=== PATIENT | female | born 1955 | race Caucasian/White ===

== ENCOUNTER 2016-08-14 07:17 | Day surgery (SDC) | payer OTHER ==
--- NOTE | 2016-08-10 13:09 | PCM.ANEPRE ---
Anesthesia Pre-Op Review Reason for Review: DISCUSSED W/ DR. DENIS/ANESTHESIA PACEMAKER Anesthesia Recommendations: Proceed with Procedure Additional Comments 61 yo F scheduled for mastectomy with ax node by Dr. Lovell. Followed by Dr. 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 Pacemaker recs received. Proceed. Yimi Denis Chart Reviewed by: Yong Lee MD August 10, 2016 13:09
[~2016-08-14] VITALS: Ht 179.1 cm; Wt 81.6 kg
[2016-08-14] VITALS (11 sets, daily range): BP systolic 115–155; BP diastolic 67–82; PULSE 65–88; RESP 13–23; O2SAT 96–100
[~2016-08-14 07:17] MED LIST: ALPR1TAB7 PO; ASPI-973 PO; CITA20TA11 PO; CeFAZolin Inj 2 GM in IV Premix 1 EACH IV SCH; Lactated Ringer's 1,000 ML IV ONE; ZOLP5TAB6 PO
[2016-08-14] MEDS ORDERED: Ketamine 10 mg/mL 20 mL Inj IV ONE (07:18)
[2016-08-14] MEDS ORDERED: Dexamethasone 4 mg/mL Inj IV ONE (07:18)
[2016-08-14] MEDS ORDERED: fentaNYL-PF 50 mCg/mL 2 mL Inj IVPUSH ONE (07:18)
[2016-08-14] MEDS ORDERED: Ondansetron 2 mg/mL 2 mL Inj IVPUSH ONE (07:18)
[2016-08-14] MEDS ORDERED: Propofol 10,000 mCg/mL 20 mL Inj IV ONE (07:18)
[2016-08-14] MEDS ORDERED: Lidocaine 1%/Epi 1:100,000 30 mL MDV INFILTRATE ONE (11:39)
[2016-08-14] MEDS ORDERED: Lactated Ringer's 1,000 ML IV SCH (12:09)
[2016-08-14] MEDS ORDERED: MetoCLOpramide 5 mg/mL 2 mL Inj IVPUSH PRN (12:10)
[2016-08-14] MEDS ORDERED: EPHEDrine Sulfate 50 mg/mL Inj IVPUSH PRN (12:10)
[2016-08-14] MEDS ORDERED: HYDROmorphone 1 mg/mL Inj IVPUSH PRN (12:10)
[2016-08-14] MEDS ORDERED: Dexamethasone 4 mg/mL Inj IVPUSH PRN (12:10)
[2016-08-14] MEDS ORDERED: Phenylephrine 10,000 mCg/mL Inj IVPUSH PRN (12:10)
[2016-08-14] MEDS ORDERED: Ondansetron 2 mg/mL 2 mL Inj IVPUSH PRN (12:10)
[2016-08-14] MEDS ORDERED: Bupivacaine-MPF 0.25%/EPI 30 mL Inj INFILTRATE ONE (12:16)
[2016-08-14] MEDS ORDERED: Lactated Ringer's 1,000 ML IV ONE (13:45)
[2016-08-14] MEDS ORDERED: HYDROcodone-APAP 5-325 mg Tablet PO PRN (13:50)
--- NOTE | 2016-08-14 13:51 | PCM.DISURG ---
Surgical Discharge Instruction Date of Service August 14, 2016 Dates of Hospitalization Date of Hospital Admission Providers Admitting Physician: Primary Care Physician: Rd Rose MD Attending Physician: Ford Lovell MD Discharge Diagnosis Discharge Diagnosis Right breast cancer Diet Discharge Diet: No restrictions Activity Discharge Activity-General: Activity as pain allows Dressing and Incisional Care Dressing Care: Allow Steri Stripes to fall off, Remove outer dressing after 24 hrs Hygiene: May shower after (24 hours) Additional Instructions Discharge Instructions Empty GEOVANNA drain record output daily. Call the surgery clinic one drain output is less than 30 mL in 24 hours for 2 consecutive days. Follow Up Plan Follow Up Plan With Dr. Lovell in 10-14 days Call your provider for: Fever (over 101.5), Discharge @ incision, pus discharge Ford Lovell MD August 14, 2016 13:51
--- NOTE | 2016-08-14 13:59 | PCM.SURGOP ---
Surgical Operative Report Date of Service: August 14, 2016 Pre Operative Diagnosis Right breast cancer Post Operative Diagnosis Same Procedure: Right simple mastectomy, right axillary sentinel lymph node biopsy Surgeon and 911 Emergency Dispatcher: Surgeon: Ford Lovell MD Assistants: Wilton Wong PA-C Indication for Procedure 61-year-old woman who was found to have a new focal asymmetry in the right breast lower inner quadrant on screening mammogram and tomosynthesis. Additional views showed a 0.7 cm mass. 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 She was a candidate for breast conserving surgery, but she strongly preferred right mastectomy without reconstruction. After discussion of risks and benefits, she agreed to proceed with right simple mastectomy, right axillary sentinel lymph node biopsy. Findings: There were 2 sentinel nodes. The first sentinel node did not have blue dye uptake, and only had an ex vivo gamma count of 5. The second sentinel node, which was immediately adjacent to it, had an ex vivo gamma count of 44, and had blue dye uptake. The background count in the right axilla was 0. Procedure Details Preoperatively, the patient underwent right breast radiotracer injection for sentinel lymph node identification. She was then brought to the operating room where she underwent smooth induction of general anesthesia with an LMA. Assessment of the right axilla revealed a very weak radiotracer signal, so methylene blue was injected, and the breast was massaged for several minutes. She was placed in the supine position with the right arm out, and was prepped and draped in wide sterile fashion. A procedural pause was performed according to the SCOAP checklist, and all were found to be in agreement. An elliptical transverse incision was made, encompassing the nipple areolar complex. Skin flaps are raised superiorly and inferiorly. Circumferential dissection was carried out with electrocautery, elevating the skin and subcutaneous tissue off the underlying breast capsule. Margins of dissection were the right clavicle, the midline, the right inframammary crease, and the right anterior axillary line. The right breast was elevated off the underlying chest wall, and pectoralis fascia was resected en bloc. The right axillary tail was divided. Prior to division, 2 separate blue lymphatic channels were visualized entering the right axilla. The right breast was oriented with suture. Assessment of the right axillary tail did not reveal any significant radiotracer uptake, and similarly, an initial assessment of the right axilla showed no significant radiotracer uptake. The right breast was sent for permanent pathology. Prior to sending it, because of difficulty identifying a sentinel node initially, portions of the posterior aspect of the axillary tail and breast were sharply dissected with Metzenbaum scissors, looking for blue lymph nodes. Attention was turned back to the axilla. Ultimately, a small focus of radiotracer activity was identified. This was dissected free from the surrounding tissue with the LigaSure device. Ex vivo, it had a fairly low radiotracer signal, but higher than background. The ex vivo count was 5. That lymph node did not have blue dye uptake. It was labeled as right axillary sentinel lymph node #1 and sent for permanent pathology. Immediately adjacent to it, there was a small blue lymph node. It was dissected free from the surrounding tissue with the LigaSure device. Ex vivo, it did have a significant radiotracer count of 44. The background count in the right axilla was 0. That lymph node was sent for permanent pathology, labeled as right axillary sentinel lymph node #2. Hemostasis was adequate. A 19 [place] round GEOVANNA drain was brought out through a separate incision laterally, and secured to the skin with a 2-0 nylon stitch. The skin flap was assessed. There was a small amount of redundant skin at the lateral aspect, which was excised sharply and sent for permanent pathology. The skin incision was then closed with interrupted deep dermal 3-0 Vicryl sutures, and a running 4-0 Vicryl subcuticular stitch. Steri-Strips and sterile dressings were applied. At the end of the case all needle and sponge counts were correct 2. The patient was awakened from anesthesia without difficulty, and taken to the recovery room in satisfactory condition, having tolerated the procedure well. Complications There were no periprocedural complications identified. Surgical Specimen Removed: Yes Specimen sent to Pathology: Yes Surgical Specimen description: Right breast. Right axillary sentinel lymph node #1. Right axillary sentinel lymph node #2. Right lateral skin. Anesthetic Plan: GA Grafts, Implants: None Output, Estimated Blood Loss: 20 Blood Administration during gilbert: No Drains: GEOVANNA Drain #1 Catheters: None copies to: Rd Rose MD; Colten Roe Joshua D MD August 14, 2016 13:59
[2016-08-14] MEDS: fentaNYL-PF 50 mCg/mL 2 mL Inj IVPUSH PRN ×2 (14:30→14:40)
--- NOTE | 2016-08-14 14:31 | PCM.HPANE ---
Patient Data Surgeon Admitting Provider: Attending Provider:Ford Lovell MD Primary Care Physician:Rd Rose MD Other Provider:[facility] Anesthesia Reason for Visit Right Breast Cancer Ht/WT & BMI Height (Feet): 5 Height (Inches): 10.50 Weight (Kilograms): 81.6 Body Mass Index 25.00 Allergies Coded Allergies: No Known Allergies (Unverified , 08/14/16) Past Anesthesia History Anesthesia History: Positive for:: Anesthesia Reactions (DIFFICULT TO SEDATE, PONV), Denies:: Abnormal Airway, Difficult Intubation, Malignant Hyperthermia Diabetes History Hx Diabetes?: No MRSA MRSA: No Medications Blood Thinner: Aspirin Hypertension Medication: No Home Meds Incl Beta Alberto: No Reported Medications Aspirin 81 Mg [id number] Mg PO DAILY Ref 0 07/16/16 Zolpidem 5 Mg Tablet5 Mg PO HS PRN For Insomnia Ref 0 07/16/16 Citalopram 20 Mg [id number] Mg PO DAILY Ref 0 07/16/16 Alprazolam 1 Mg Tablet1 Mg PO TID PRN For Anxiety Ref 0 07/16/16 History History of ENT Problems?: No HEENT History: Denies:: Abnormal Airway Difficult Intubation Denture Type: None Teeth Condition: Within Normal Limits Hx of Heart Problems?: Yes Cardiovascular History: Positive for:: Cardiac Surgery (S/P PACEMAKER) Irregular Heartbeat (TACHY-MAO SYNDROME) [facility] Denies:: Heart Murmur Hypertension Hx of Respiratory Problem?: Yes Respiratory History: Positive for:: Dyspnea (2 BOUTS OF ESTRELLA (RESOLVED)-W/U NEG EXCEPT FOR STABLE PULM. NODULES) Denies:: Use of C-PAP Machine Hx Neurologic Problems?: No Hx of GI Problems?: Yes Hx of Problems?: No Female Hx: Positive for:: Endometriosis Problems with Breasts? (S/P RT BREAST BX RT BREAST CA (+HRT)=CURRENT PROBLEM) Denies:: Currently Skin History: Denies:: History Skin Disorders? Pressure Ulcers Hx Musculoskeletal Problems?: Yes Musculoskeletal History: Positive for:: Musculoskeletal Trauma (S/P KNEE SCOPE HX LT FX WRIST) Hx of Psycho/Social Problems?: Yes Psycho Social History: Positive for:: Anxiety (SLEEP WALKS) Hx Surgeries?: Yes (PACEMAKER,EMMANUEL/BSO,KNEE SCOPE,RT BREAST BX) Hx Any Other Health Problems?: Yes Other History: Positive for:: Cancer (RT BREAST) Hospitalization (CARDIAC) Denies:: Endocrine Disease Thyroid Disease History Blood Transfusions: Denies:: Blood Transfusions Hx Diabetes: No Have You Smoked inLast 12 mo: No Stop/Bang Treated for Sleep Apnea?: No Do You Have a CPAP Machine?: No S-Snoring: Do You Snore Loudly: No T-Tired: feel tired, fatigued: No O-Obsered: Observed not breath: No P-Blood Pressure: treated: No B- Body Mass Index > 35 kg/m2: No A- Age over 50: Yes N- Neck Large Circumference: No G- Gender Male: No GERMAN Total Score: 1 GERMAN Risk Assessment: Low Risk, <3 Yes Risk Assessment Category Category 1A: Patient has history of documented sleep apnea, and HAS NOT received any narcotic, sedative or anesthesia administration during this stay. Category 1B: Patient has history of documented sleep apnea, and HAS received any narcotic , sedative or anesthesia administration during this stay Category 2: Patient has SUSPECTED Obstructive Sleep Apnea, and HAS received any narcotic , sedative or anesthesia administration during this stay. Category 3: Patient has SUSPECTED Obstructive Sleep Apnea and HAS NOT received narcotic, sedative or anesthesia administration during this stay. Category 4: Outpatient in Procedural Areas with known sleep apnea or who screen positive for High Risk via the STOP/BANG questionnaire. Exam Exam Vital Signs Vital Signs Date Time Temp Pulse Resp B/P Pulse Ox O2 Delivery O2 Flow Rate FiO2 08/14/16 08:24 36.1 65 16 121/67 99 Room Air General Appearance: Alert, Oriented X3, Cooperative, No Acute Distress HEENT/AIRWAY: MP 2 Lungs: Clear to Auscultation, Normal Air Movement Heart: Exam Unremarkable, Regular Rate/Rhythm, No Murmurs/Rubs/Gallops Meds/Labs/Diagnostics Admission Meds Current Medications Cefazolin Sodium/ Dextrose 2 gm/ Premix 50 ml @ 100 mls/hr ONCE IV Last administered on 08/14/16 11:39; Start 08/14/16 at 06:00; Stop 08/14/16 at 19:00 Lactated Ringer's (Lr) 1,000 ml @ 120 mls/hr Q8H20M ONCE IV Last administered on 08/14/16 05:14; Start 08/14/16 at 05:00; Stop 08/14/16 at 13:19; Status DC Bupivacaine HCl/ Epinephrine Bitart 30 ml 30 ml STK-MED ONCE INFILTRATE Last administered on 08/14/16 12:16; Start 08/14/16 at 12:16; Stop 08/14/16 at 12:17 ; Status DC Lactated Ringer's (Lr) 1,000 ml @ ud STK-MED ONCE IV Last administered on 08/14 13:45; Start 08/14/16 at 13:45; Stop 08/14/16 at 13:46; Status DC Plan Impression Patient chart reviewed, patient interviewed and anesthestic plan with risks, benefits, and alternatives discussed, and informed consent obtained. NPO per Anesth. Guidelines: Yes ASA Physical Status: ASA2 Mod Systemic Disease Anesthetic Plan: GA Bene/Risks/Altern/Consents: Yes HP Complete Prior to Induction: Yes Jose Carranza MD August 14, 2016 14:31
--- NOTE | 2016-08-14 14:48 | PCM.ANEP1 ---
Post Anesthesia PACU Phase 1 Assessment Vital Signs Vital Signs Date Time Temp Pulse Resp B/P Pulse Ox O2 Delivery O2 Flow Rate FiO2 08/14/16 08:24 36.1 65 16 121/67 99 Room Air Anesthetic Administered: GA Level of Alertness: Sleepy, easy to arouse COSTA's with Equal Strength: Yes Pain: No Nausea or Vomiting: No CV Function & Hydration Stable: Yes Airway Device: natural airway Oxygen Delivery: Simple Mask Lungs: Clear to Auscultation, Normal Air Movement Dermatome Level: Full Sensation PACU Phase 2 Assessment Complications: No Follow up Care: No Patient Instructions Provided: Yes Jose Carranza MD August 14, 2016 14:48
[2016-08-14] MEDS: Lactated Ringer's 500 ML IV PRN ×2 (15:35→17:00)
[2016-08-14] MEDS ORDERED: hydrOXYzine Inj 50 MG/1 mL SDV IM ONE (16:50)
--- NOTE | 2016-08-15 15:17 | DRSVH ---
PROCEDURE: NM SENTINEL NODE INJECTION ONLY, RIGHT BREAST RADIOPHARMACEUTICAL: 0.5 mCi Millipore filtered Tc-99m sulfur colloid. INDICATIONS: right breast cancer PROCEDURE: The indications, alternatives, benefits, risks, and complications of the procedure were explained to the patient. Written informed consent was obtained and placed in the chart. The area around the nip ple was prepped and draped in a sterile fashion. Tc-99m sulfur colloid was injected in the outer edg e of the areola in the right breast. No image was obtained. IMPRESSION: Administration of radiotracer into the right breast periareolar region for intra-operati ve sentinel lymph node localization. Dictated by: Dallas Gray M.D. on 08/15/2016 at 15:15 Approved by: Dallas Gray M.D. on 08/15/2016 at 15:16
== END 2016-08-14 23:59 | disposition home or self-care (01) ==
LOC: SAS 07:17
PROVIDERS: ATTEND Student in an Organized Health Care Education/Training Program
DX: C50.511 Malignant neoplasm of lower-outer quadrant of right female breast (principal); I49.5 Sick sinus syndrome; F32.9 Major depressive disorder, single episode, unspecified; F51.3 Sleepwalking [somnambulism]; Z95.0 Presence of cardiac pacemaker; Z90.710 Acquired absence of both cervix and uterus
CPT/HCPCS: 19303; 38525; 38792; A9541; J0690; J1170; J2250; J2405; J2765; J3010; J3410; J7120